=== PATIENT | male | born 1950 | race Two or more races ===

== ENCOUNTER 2021-03-08 08:44 | Outpatient (CLI) | payer OTHER ==
[~2021-03-08 08:44] MED LIST: AVANDAMET 1 MG/1 TAB; INDOCIN25 MG; INDOMETHACIN; LEVAQUIN250 MG/10; NAPROSYN125 MG/5 M; NEOSPORIN PLUS; NORFLEX30 MG/ML
== END 2021-03-08 08:54 | disposition home or self-care (01) ==
LOC: RAD 08:44
PROVIDERS: ATTEND Specialist
DX: R07.89 Other chest pain (principal); R10.84 Generalized abdominal pain; E03.8 Other specified hypothyroidism; Z72.0 Tobacco use

== ENCOUNTER → 2021-03-09 | Outpatient (CLI) | payer OTHER | END | disposition home or self-care (01) | LOC: TOM 08:34 | PROVIDERS: ATTEND Specialist | DX: K57.90 Diverticulosis of intestine, part unspecified, without perforation or abscess without bleeding (principal); R10.84 Generalized abdominal pain ==

== ENCOUNTER 2021-03-28 09:58 | Outpatient (CLI) | payer OTHER | END 2021-03-28 10:10 | disposition home or self-care (01) | LOC: TOM 09:58 | DX: D37.8 Neoplasm of uncertain behavior of other specified digestive organs (principal) ==

== ENCOUNTER 2021-10-09 08:43 | Outpatient (CLI) | payer OTHER | END 2021-10-09 09:03 | disposition home or self-care (01) | LOC: TOM 08:43 | PROVIDERS: ATTEND Internal Medicine Hematology & Oncology | DX: C25.1 Malignant neoplasm of body of pancreas (principal) ==